=== PATIENT | female | born 1995 | race Caucasian/White ===

== ENCOUNTER 2017-08-09 14:01 | Emergency (ER) | payer SELFPAY ==
[~2017-08-09] VITALS: Ht 160 cm; Wt 58.5 kg
[2017-08-09 14:05] VITALS: Ht 160 cm; Wt 58.5 kg
[2017-08-09] MEDS ORDERED: ONDANSETRON (ODT) 4 MG TAB ODT STA (14:42)
[2017-08-09] MEDS ORDERED: DICYCLOMINE 10 MG CAP PO ONE (15:00)
[2017-08-09] MEDS ORDERED: ONDA4TAB14 PO (16:15)
[2017-08-09] MEDS ORDERED: DICY10CA60 PO (16:24)
--- NOTE | 2017-08-09 16:44 | ERD ---
ER Documentation Chief Complaint Date/Time DATE: 08/09/17 TIME: 16:30 Chief Complaint abdominal pain x 30 min ago, + nausea,+ diarrhea HPI Patient is a 21-year-old female presents emergency department for concerns of diffuse abdominal pain 30 minutes. Patient states that she had "honey steak with unpasteurized honey" for lunch at the [employer]. Patient states 1 hour after eating this food she developed abdominal pain. Patient was feeling nauseous at this time. Patient states she did have 2 episodes of nonbloody, nonbilious vomiting earlier. Patient reports having 3 episodes of nonbloody nonmucous watery stools. Patient denies any pain, shortness of breath, difficulty breathing, visual changes, eye muscle weakness, slurred speech, muscle weakness or difficulty ambulating. ROS All systems reviewed and are negative except as per history of present illness. Medications Home Meds Active Scripts Dicyclomine Hcl* (Bentyl*) 10 Mg Capsule, 10 MG PO QID, #20 CAP Prov:PALOMO PUGA PA-C 08/09/17 Ondansetron (Ondansetron Odt) 4 Mg Tab.rapdis, 4 MG PO Q6H Y for NAUSEA AND/OR VOMITING, #10 TAB Prov:PALOMO PUGA PA-C 08/09/17 PMhx/Soc Medical and Surgical Hx: pt denies Medical Hx, pt denies Surgical Hx Hx Alcohol Use: No Hx Substance Use: No Hx Tobacco Use: No Smoking Status: Never smoker Physical Exam Vitals Vital Signs Date Time Temp Pulse Resp B/P Pulse Ox O2 Delivery O2 Flow Rate FiO2 08/09/17 14:05 98.8 68 18 125/65 65 Physical Exam GENERAL: Well-developed, well-nourished female. Appears in no acute distress. HEAD: Normocephalic, atraumatic. EYES: Pupils are equally reactive bilaterally. EOMs grossly intact. No conjunctival erythema. ENT: Moist mucous membranes. No uvula deviation. No kissing tonsils. NECK: Supple. No meningismus. Normal range of motion of the neck. LUNG: Clear to auscultation bilaterally. No rhonchi, wheezing, rales or coarse breath sounds. HEART: Regular rate and rhythm. No murmurs, rubs or gallops. ABDOMEN: No scars, ecchymosis or rashes noted. Soft, and nondistended.Diffuse tenderness in all 4 quadrants, slightly worse in the left lower quadrant. Positive bowel sounds in all four quadrants. No rebound tenderness, no guarding. (-) McBurney's point tenderness. No CVA tenderness. BACK: No midline tenderness. EXTREMITIES: Equal pulses bilaterally. No peripheral clubbing, cyanosis or edema. No unilateral leg swelling. NEUROLOGIC: Alert and oriented. CN 2-12 intact. Moving all four extremities without any difficulty. Normal speech. Steady gait. 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 SKIN: Normal color. Warm and dry. No rashes or lesions. Results 24 hrs Current Medications Medications (Trade) Dose Ordered Sig/Monster Route PRN Reason Start Time Stop Time Status Last Admin Dose Admin Ondansetron HCl (Zofran Odt) 4 mg ONCE STAT ODT 08/09/17 14:42 08/09/17 14:43 DC 08/09/17 15:34 Dicyclomine HCl (Bentyl) 10 mg ONCE ONCE PO 08/09/17 15:00 08/09/17 15:01 DC 08/09/17 15:35 Procedures/MDM MEDICAL DECISION MAKING: This is a 21-year-old female who presents emergency department with complaints of abdominal pain, nausea, vomiting and diarrhea which started approximately 20 minutes ago. Patient reports eating "honey steak with unpasterized honey" at the [employer] earlier today. Patient had no muscle weakness, eye visual changes, or eye muscle weakness. Vital signs were reviewed. Patient is afebrile. Abdominal exam revealed diffuse abdominal pain. Zofran and Bentyl were given in ED. Patient reported in symptoms. At this time, patient's presentation is most consistent with abdominal pain, vomiting and diarrhea of viral etiology. I have a much lower clinical concern for botulism, acute coronary syndrome, lower lobe pneumonia, DKA, bowel perforation, bowel obstruction, cholecystitis, choledocholithiasis, pancreatitis , diverticulitis, UTI, pyelonephritis, nephrolithiasis, appendicitis. PRESCRIPTIONS: Bentyl, Zofran DISCHARGE: At this time, patient is stable for discharge and outpatient management. I have instructed the patient to follow-up with his/her primary care physician in 1-2 days. I have instructed the patient to promptly return to the ER at any time for any new or worsening symptoms including increased pain, nausea, vomiting, diarrhea, fever, weakness or LOC. The patient and/or family expressed understanding of and agreement with this plan. All questions were answered. Home care instructions were provided. Departure Diagnosis: Primary Impression: Abdominal pain Abdominal location: unspecified location Qualified Code: R10.9 - Abdominal pain, unspecified abdominal location Additional Impression: Nausea vomiting and diarrhea Condition: Stable Patient Instructions: Abdominal Pain, Self-Care for Vomiting and Diarrhea Referrals: [facility] YOU HAVE RECEIVED A MEDICAL SCREENING EXAM AND THE RESULTS INDICATE THAT YOU DO NOT HAVE A CONDITION THAT REQUIRES URGENT TREATMENT IN THE EMERGENCY DEPARTMENT. FURTHER EVALUATION AND TREATMENT OF YOUR CONDITION CAN WAIT UNTIL YOU ARE SEEN IN YOUR DOCTORS OFFICE WITHIN THE NEXT 1-2 DAYS. IT IS YOUR RESPONSIBILITY TO MAKE AN APPOINTMENT FOR FOLOW-UP CARE. IF YOU HAVE A PRIMARY DOCTOR --you should call your primary doctor and schedule an appointment IF YOU DO NOT HAVE A PRIMARY DOCTOR YOU CAN CALL OUR PHYSICIAN REFERRAL HOTLINE AT IF YOU CAN NOT AFFORD TO SEE A PHYSICIAN YOU CAN CHOSE FROM THE FOLLOWING [facility] [address] [facility] [address] [facility]. [facility] [address] [facility] [address] [facility] [address] [facility]. [facility]. [address] [facility]. [facility] YOU HAVE RECEIVED A MEDICAL SCREENING EXAM AND THE RESULTS INDICATE THAT YOU DO NOT HAVE A CONDITION THAT REQUIRES URGENT TREATMENT IN THE EMERGENCY DEPARTMENT. FURTHER EVALUATION AND TREATMENT OF YOUR CONDITION CAN WAIT UNTIL YOU ARE SEEN IN YOUR DOCTORS OFFICE WITHIN THE NEXT 1-2 DAYS. IT IS YOUR RESPONSIBILITY TO MAKE AN APPOINTMENT FOR FOLOW-UP CARE. IF YOU HAVE A PRIMARY DOCTOR --you should call your primary doctor and schedule and appointment IF YOU DO NOT HAVE A PRIMARY DOCTOR YOU CAN CALL OUR PHYSICIAN REFERRAL HOTLINE AT . IF YOU CAN NOT AFFORD TO SEE A PHYSICIAN YOU CAN CHOSE FROM THE FOLLOWING [facility] INSTITUTIONS: [address] [place] [address] [facility] [address] [place] [address] [facility] + [facility] [address] [place] [address] Additional Instructions: Abdominal pain recheck advised in 8-10 hours. BRAT diet advised. Drink plenty of fluids. Call your primary care doctor TOMORROW for an appointment during the next 1-2 days.See the doctor sooner or return here if your condition worsens before your appointment time. PALOMO PUGA PA-C Aug 09, 2017 16:42 days.See the doctor sooner or return here if your condition worsens before your appointment time. PALOMO PUGA PA-C Aug 09, 2017 16:42
== END 2017-08-09 16:34 | disposition home or self-care (01) ==
LOC: FTE 14:01
DX: R10.84 Generalized abdominal pain (principal); R11.2 Nausea with vomiting, unspecified; R19.7 Diarrhea, unspecified
CPT/HCPCS: 99284